=== PATIENT | male | born 1975 | race Caucasian/White ===

== ENCOUNTER 2017-12-13 10:25 | Emergency (ER) | payer OTHER ==
[2017-12-13] MEDS: ONDANSETRON 4 MG INJ IV (10:54)
[2017-12-13] MEDS: morphine 4 MG/ML VIAL IV ×2 (10:54→15:19)
[2017-12-13] MEDS: SOD CHLORIDE 0.9% 1,000 ML IV (10:54)
[2017-12-13 11:02] LABS: ADD MAN DIFF? NO
[2017-12-13 11:03] LABS: WHITE BLOOD COUNT 23.9 10^3/ul (4.8-10.8)
[2017-12-13 11:03] LABS: ABNORMAL IP MESSAGE 1; BASOPHIL # 0.1 10^3/ul (0.0-0.1); BASOPHILS % 0.3 % (0.0-2.0); HEMATOCRIT 56.6 % (42.0-52.0); HEMOGLOBIN 20.1 g/dl (14.0-18.0); LYMPHOCYTES # 0.8 10^3/ul (0.8-2.9); LYMPHOCYTES % 3.4 % (15.0-51.0); MEAN CORPUSCULAR HEMOGLOBIN 33.1 pg (29.0-33.0); MEAN CORPUSCULAR HGB CONC 35.5 g/dl (32.0-37.0); MEAN CORPUSCULAR VOLUME 93.1 fl (82.0-101.0); MEAN PLATELET VOLUME 10.4 fl (7.4-10.4); MONOCYTE # 1.7 10^3/ul (0.3-0.9); NEUTROPHIL # 21.2 10^3/ul (1.6-7.5); NEUTROPHILS % 88.8 % (39.0-77.0); PLATELET COUNT 355 10^3/UL (140-415); POSITIVE DIFF @See below; RED BLOOD COUNT 6.08 10^6/ul (4.70-6.10); RED CELL DISTRIBUTION WIDTH 12.9 % (11.5-14.5)
[2017-12-13 11:11] LABS: ADD UMIC YES; UR ASCORBIC ACID 20 mg/dL (NEGATIVE); UR BACTERIA FEW /HPF (NONE SEEN); UR BILIRUBIN (Dip) 1+ mg/dL (NEGATIVE); UR BLOOD (Dip) NEGATIVE (NEGATIVE); UR CLARITY SLIGHTLY CLOUDY (CLEAR); UR COLOR AMBER (YELLOW); UR GLUCOSE (Dip) NEGATIVE (NEGATIVE); UR KETONES (Dip) TRACE mg/dL (NEGATIVE); UR LEUKOCYTE ESTERASE (Dip) NEGATIVE Leu/ul (NEGATIVE); UR MUCUS MANY /HPF (NONE SEEN); UR NITRITE (Dip) NEGATIVE (NEGATIVE); UR RBC 6 /HPF (0-5); UR SPECIFIC GRAVITY (Dip) 1.041 (1.003-1.030); UR SQUAMOUS EPITHELIAL CELL FEW /HPF (FEW); UR TOTAL PROTEIN (Dip) 2+ mg/dl (NEGATIVE); UR UROBILINOGEN (Dip) 2+ mg/dL (NEGATIVE); UR WBC 5 /HPF (0-5)
[2017-12-13 11:22] LABS: ALANINE AMINOTRANSFERASE 40 IU/L (13-69); ALBUMIN 5.1 g/dl (3.3-4.9); ALBUMIN/GLOBULIN RATIO 1.27; ALKALINE PHOSPHATASE 121 IU/L (42-121); ANION GAP 20 (8-16); ASPARTATE AMINO TRANSFERASE 40 IU/L (15-46); BILIRUBIN,INDIRECT 1.8 mg/dl (0-1.1); BILIRUBIN,TOTAL 1.8 mg/dl (0.2-1.3); BLOOD UREA NITROGEN 18 mg/dl (7-20); CALCIUM 10.5 mg/dl (8.4-10.2); CARBON DIOXIDE 30 mmol/L (21-31); CHLORIDE 96 mmol/L (97-110); GLUCOSE 155 mg/dl (70-220); LIPASE 42 U/L (23-300); POTASSIUM 4.1 mmol/L (3.5-5.1); SODIUM 142 mmol/L (135-144); TOTAL PROTEIN 9.1 g/dl (6.1-8.1)
[2017-12-13 11:33] LABS: TROPONIN-I < 0.010 ng/ml (0.000-0.120)
[2017-12-13] MEDS: SODIUM CHLORIDE 0.9% 1L BAG IV* (12:22)
[2017-12-13] MEDS: PIPER-TAZO 3.375 GM IV (PMX) 100 ML IVPB (12:27)
[2017-12-13] MEDS ORDERED: SOD CHLORIDE 0.9% IV (12:30)
[2017-12-13 12:37] LABS: INR 0.96; PROTIME 12.9 Sec (11.9-14.9)
[2017-12-13 12:38] LABS: PARTIAL THROMBOPLASTIN TIME 28.6 Sec (25.0-35.0)
[2017-12-13 13:04] LABS: LACTIC ACID 2.2 mmol/L (0.5-2.0)
[2017-12-13] MEDS: HYDROmorphONE 0.5 MG/0.5 ML SYG IV (18:37)
== END 2017-12-13 20:05 | disposition short-term general hospital (02) ==
LOC: FTE 10:25
DX: K63.89 Other specified diseases of intestine (principal); R11.10 Vomiting, unspecified
CPT/HCPCS: 36415; 71045; 74176; 76705; 80053; 81001; 83605; 83690; 84484; 85025; 85610; 85730; 87040; 87086; 93005; 96374; 96375; 96376; 99291-25

== ENCOUNTER 2018-08-04 13:59 | Day surgery (SDC) | payer OTHER ==
[2018-08-04] MEDS ORDERED: MIDAZOLAM 1 MG/ML 2 ML INJ (15:09)
[2018-08-04] MEDS ORDERED: LIDOCAINE 2% (SDV) 5 ML INJ (15:09)
[2018-08-04] MEDS ORDERED: PROPOFOL 40 ML (15:09)
[2018-08-04] MEDS ORDERED: PROPOFOL 200 MG INJ (15:09)
[2018-08-04] MEDS ORDERED: FENTAnyl 50 MCG/ML VIAL (15:09)
== END 2018-08-04 17:46 | disposition home or self-care (01) ==
LOC: GIL 13:59
DX: Z12.11 Encounter for screening for malignant neoplasm of colon (principal); K57.30 Diverticulosis of large intestine without perforation or abscess without bleeding; E66.9 Obesity, unspecified; Z68.36 Body mass index [BMI] 36.0-36.9, adult
CPT/HCPCS: 45380; 88305